=== PATIENT | male | born 1940 | race Caucasian/White ===

== ENCOUNTER 2022-01-06 14:08 | Inpatient (IN) | payer MEDICARE ==
[~2022-01-06] VITALS: Ht 175.3 cm; Wt 72.6 kg
[2022-01-06] MEDS ORDERED: ONDANSETRON HCL INJ 2MG/ML 2ML 2 MG/ML VIAL IV STA (14:37)
[2022-01-06] MEDS ORDERED: Morphine 2mg Syringe 2 MG/ML SYR IV ONE (14:45)
[2022-01-06] MEDS ORDERED: SODIUM CHLORIDE 0.9% 1000ML 1,000 ML IV SCH ×2 (14:45→16:00)
[2022-01-06] MEDS ORDERED: Morphine 4mg INJECTION 4 MG/ML INJ ONE (14:51)
[2022-01-06] MEDS ORDERED: SODIUM CHLORIDE 0.9% 1000ML 1,000 ML ONE (15:09)
[2022-01-06] MEDS ORDERED: ONDANSETRON HCL INJ 2MG/ML 2ML 2 MG/ML VIAL ONE (15:09)
[2022-01-06 17:55] VITALS: BP 164/81
[2022-01-06 18:11] VITALS: BP 165/82
[2022-01-06] MEDS: DEXTROSE 5%/0.9% SOD CHL 1,000 ML IV SCH (19:20)
[2022-01-06] MEDS: Morphine 2mg Syringe 2 MG/ML SYR IV PRN (19:23)
[2022-01-06] MEDS: MAALOX/LIDOCAINE/BENADRYL/NYST 30 ML BTL PO PRN (19:23)
[2022-01-06] MEDS ORDERED: HEPARIN 500 UNITS/5ML MDV INJ ONE (19:30)
[2022-01-06 20:00] VITALS: BP 158/74
[2022-01-06] MEDS ORDERED: POTASSIUM CHLORIDE 20 MEQ TAB CR PO PRN (22:45)
[2022-01-06] MEDS ORDERED: ALBUTEROL/IPRATROPIUM 3 ML NEB NEB PRN (22:45)
[2022-01-06] MEDS ORDERED: CHLORASEPTIC SPRAY 177 ML BTL MM PRN (22:45)
[2022-01-06] MEDS ORDERED: LIDOCAINE 4% PATCH TP PRN (22:45)
[2022-01-06] MEDS ORDERED: SIMETHICONE 80 MG CHEW PO PRN (22:45)
[2022-01-06] MEDS ORDERED: DOCUSATE SODIUM 100 MG CAP PO PRN (22:45)
[2022-01-06] MEDS ORDERED: HYDROCODONE/APAP 5MG-325MG TAB PO PRN (22:45)
[2022-01-06] MEDS ORDERED: ACETAMINOPHEN 325 MG TAB PO PRN (22:45)
[2022-01-06] MEDS ORDERED: MELATONIN 5 MG TABLET PO PRN (22:45)
[2022-01-06] MEDS ORDERED: BENZONATATE 100 MG CAP PO PRN (22:45)
[2022-01-06] MEDS ORDERED: DEXTROSE 50% SYRINGE 50 ML IV PRN (22:45)
[2022-01-06] MEDS ORDERED: HYDRALAZINE HCL 20 MG/ML VIAL IV PRN (22:45)
[2022-01-07] VITALS (8 sets, daily range): BP systolic 121–166; BP diastolic 77–87
[2022-01-07] MEDS: Morphine 2mg Syringe 2 MG/ML SYR IV PRN (00:31)
[2022-01-07] MEDS: DEXTROSE 5%/0.9% SOD CHL 1,000 ML IV SCH ×2 (05:14→16:02)
[2022-01-07 05:18] LABS: MAGNESIUM 2.2 MG/DL (1.3-2.1); PHOSPHORUS 3.2 MG/DL (2.3-4.7)
[2022-01-07 06:54] LABS: BASOPHILS % 0.2 % (0.0-1.0); EOSINOPHILS % 0.2 % (0.0-6.0); HEMATOCRIT 43.1 % (38.2-49.6); HEMOGLOBIN 13.8 g/dL (14.0-18.0); LYMPHOCYTES # (AUTO) 0.6 (1.0-3.2); LYMPHOCYTES % 9.3 % (18.0-39.1); MEAN CORPUSCULAR HEMOGLOBIN 32.8 pg (28-32); MEAN CORPUSCULAR VOLUME 102.4 fL (81-99); MONOCYTES % 0.6 % (4.4-11.3); NEUTROPHILS # (AUTO) 5.9 (2.1-6.9); NEUTROPHILS % 88.9 % (38.7-80.0); PLATELET COUNT 132 x10e3/uL (140-360); RED BLOOD COUNT 4.21 x10e6/uL (4.3-5.7); RED CELL DISTRIBUTION WIDTH 14.5 % (11.7-14.4)
[2022-01-07 07:21] LABS: ANION GAP 13.6 mmol/L (8-16); CALCIUM 8.8 mg/dL (8.4-10.2); CREATININE, SERUM 0.77 mg/dL (0.72-1.25); POTASSIUM 3.6 mmol/L (3.5-5.1)
[2022-01-07] MEDS: PANTOPRAZOLE SOD 40 MG TABEC PO SCH (08:09)
[2022-01-07] MEDS: SUCRALFATE 1 GM/10 ML SUSP PO SCH ×4 (08:09→19:50)
[2022-01-07] MEDS: MAALOX/LIDOCAINE/BENADRYL/NYST 30 ML BTL PO PRN (09:00)
[2022-01-07] MEDS ORDERED: FLUCONAZOLE 100 MG TAB PO SCH (11:00)
[2022-01-07] MEDS ORDERED: HYDROCODON-ACE1 EA12 PO (11:44)
[2022-01-07] MEDS ORDERED: SERTRALINE HCL100 MG PO (11:45)
[2022-01-07] MEDS ORDERED: MS CONTIN15 MG PO (11:45)
[2022-01-07] MEDS: HYDROCODONE BIT/ACETAMINOPHEN 2.5 MG/108MG PER 5 ML SOLUTION PO PRN (11:52)
[2022-01-07] MEDS: Morphine 4mg INJECTION 4 MG/ML INJ IV PRN ×2 (16:15→20:44)
[2022-01-07] MEDS: ENOXAPARIN SOD INJ 40 MG/0.4 ML SYR SC SCH (17:04)
[2022-01-08] VITALS (7 sets, daily range): BP systolic 121–169; BP diastolic 73–98
[2022-01-08] MEDS: DEXTROSE 5%/0.9% SOD CHL 1,000 ML IV SCH ×3 (01:30→21:30)
[2022-01-08] MEDS: SUCRALFATE 1 GM/10 ML SUSP PO SCH ×5 (05:22→21:00)
[2022-01-08] MEDS: PANTOPRAZOLE SOD 40 MG TABEC PO SCH (07:30)
[2022-01-08] MEDS: Morphine 4mg INJECTION 4 MG/ML INJ IV PRN ×4 (08:22→22:30)
[2022-01-08] MEDS: FLUCONAZOLE 100 MG TAB PEG SCH (09:00)
[2022-01-08] MEDS ORDERED: IOPAMIDOL 370 MG/ML 100 ML INFUS..BTL INJ ONE (12:05)
[2022-01-08] MEDS ORDERED: LIDOCAINE HCL 2% LOCAL INJ 5 ML SDV VIAL INJ ONE (13:24)
[2022-01-08] MEDS ORDERED: PROPOFOL IV EMULSION 10 MG/ML 20 ML VIAL ONE (13:24)
[2022-01-08] MEDS ORDERED: MIDAZOLAM HCL 2 MG/2 ML VIAL ONE (13:44)
[2022-01-08] MEDS: ENOXAPARIN SOD INJ 40 MG/0.4 ML SYR SC SCH (17:00)
[2022-01-08] MEDS: MAALOX/LIDOCAINE/BENADRYL/NYST 30 ML BTL PO PRN (21:40)
[2022-01-09] VITALS (7 sets, daily range): BP systolic 116–172; BP diastolic 58–94
[2022-01-09 04:57] LABS: BASOPHILS % 0.3 % (0.0-1.0); EOSINOPHILS % 0.2 % (0.0-6.0); HEMATOCRIT 44.8 % (38.2-49.6); HEMOGLOBIN 13.6 g/dL (14.0-18.0); LYMPHOCYTES # (AUTO) 0.5 (1.0-3.2); LYMPHOCYTES % 8.1 % (18.0-39.1); MEAN CORPUSCULAR HEMOGLOBIN 32.8 pg (28-32); MEAN CORPUSCULAR HGB CONC 30.4 g/dL (31-35); MONOCYTES # (AUTO) 0.1 (0.2-0.8); MONOCYTES % 0.8 % (4.4-11.3); NEUTROPHILS # (AUTO) 5.7 (2.1-6.9); NEUTROPHILS % 89.3 % (38.7-80.0); PLATELET COUNT 75 x10e3/uL (140-360); RED BLOOD COUNT 4.15 x10e6/uL (4.3-5.7); RED CELL DISTRIBUTION WIDTH 14.3 % (11.7-14.4)
[2022-01-09 06:19] LABS: LYMPHOCYTES % (MANUAL) 6 % (19-48); NEUTROPHILS % (MANUAL) 94 % (40-74); PLATELET ESTIMATE MODERATELY DECREASED; PLATELET MORPHOLOGY COMMENT NORMAL; RBC MORPHOLOGY COMMENT NORMAL
[2022-01-09] MEDS: DEXTROSE 5%/0.9% SOD CHL 1,000 ML IV SCH (06:20)
[2022-01-09 07:49] LABS: ANION GAP 13.3 mmol/L (8-16); CALCIUM 8.4 mg/dL (8.4-10.2); CREATININE, SERUM 0.73 mg/dL (0.72-1.25); POTASSIUM 3.3 mmol/L (3.5-5.1)
[2022-01-09] MEDS: SUCRALFATE 1 GM/10 ML SUSP PO SCH ×4 (08:20→21:32)
[2022-01-09] MEDS: PANTOPRAZOLE SOD 40 MG TABEC PO SCH (08:20)
[2022-01-09] MEDS: FLUCONAZOLE 100 MG TAB PEG SCH (09:00)
[2022-01-09] MEDS: Morphine 4mg INJECTION 4 MG/ML INJ IV PRN ×2 (09:17→14:40)
[2022-01-09] MEDS: ONDANSETRON HCL INJ 2MG/ML 2ML 2 MG/ML VIAL IV PRN ×2 (09:17→14:40)
[2022-01-09] MEDS ORDERED: ACYCLOVIR 200 MG CAP PO SCH (14:00)
[2022-01-09] MEDS ORDERED: POTASSIUM CHLORIDE 20MEQ/100ML 200 ML IV ONE (14:15)
[2022-01-09] MEDS ORDERED: POTASSIUM CHLORIDE 20MEQ/15ML UDC NG ONE (14:45)
[2022-01-09] MEDS ORDERED: KCL 20 MEQ PACKET/ ORAL SOLN NG ONE (15:30)
[2022-01-09] MEDS: ENOXAPARIN SOD INJ 40 MG/0.4 ML SYR SC SCH (16:39)
[2022-01-09] MEDS: DEXTROSE 5% 1,000 ML IV SCH (16:39)
[2022-01-09] MEDS: ACYCLOVIR SODIUM 800 MG in SODIUM CHLORIDE 0.9% 250ML 250 ML IV SCH ×2 (16:39→21:33)
[2022-01-09] MEDS: METOCLOPRAMIDE HCL 10 MG/2ML VIAL IV SCH ×2 (16:44→23:56)
[2022-01-09] MEDS: DIPHENHYDRAMINE HCL 25 MG CAP PO PRN (23:56)
[2022-01-09] MEDS: HYDROCODONE BIT/ACETAMINOPHEN 2.5 MG/108MG PER 5 ML SOLUTION PO PRN (23:56)
[2022-01-10] VITALS (8 sets, daily range): BP systolic 152–168; BP diastolic 71–91
[2022-01-10] MEDS: DEXTROSE 5% 1,000 ML IV SCH ×3 (00:56→20:22)
[2022-01-10] MEDS: ACYCLOVIR SODIUM 800 MG in SODIUM CHLORIDE 0.9% 250ML 250 ML IV SCH ×3 (05:59→21:55)
[2022-01-10] MEDS: METOCLOPRAMIDE HCL 10 MG/2ML VIAL IV SCH ×4 (05:59→23:39)
[2022-01-10 06:50] LABS: BASOPHILS % 0.2 % (0.0-1.0); EOSINOPHILS # (AUTO) 0.1 (0.0-0.4); HEMATOCRIT 40.9 % (38.2-49.6); HEMOGLOBIN 13.4 g/dL (14.0-18.0); LYMPHOCYTES # (AUTO) 0.7 (1.0-3.2); LYMPHOCYTES % 14.9 % (18.0-39.1); MEAN CORPUSCULAR HEMOGLOBIN 32.4 pg (28-32); MEAN CORPUSCULAR HGB CONC 32.8 g/dL (31-35); MONOCYTES % 0.9 % (4.4-11.3); NEUTROPHILS # (AUTO) 3.6 (2.1-6.9); NEUTROPHILS % 81.3 % (38.7-80.0); PLATELET COUNT 70 x10e3/uL (140-360); RED BLOOD COUNT 4.13 x10e6/uL (4.3-5.7); RED CELL DISTRIBUTION WIDTH 14.1 % (11.7-14.4)
[2022-01-10 07:22] LABS: CALCIUM 8.2 mg/dL (8.4-10.2); CREATININE, SERUM 0.78 mg/dL (0.72-1.25)
[2022-01-10] MEDS: PANTOPRAZOLE SOD 40 MG TABEC PO SCH (07:30)
[2022-01-10] MEDS: FLUCONAZOLE 100 MG TAB PEG SCH (09:25)
[2022-01-10] MEDS: SUCRALFATE 1 GM/10 ML SUSP PO SCH ×4 (09:25→21:55)
[2022-01-10] MEDS: ONDANSETRON HCL INJ 2MG/ML 2ML 2 MG/ML VIAL IV PRN ×3 (09:45→20:22)
[2022-01-10] MEDS: Morphine 4mg INJECTION 4 MG/ML INJ IV PRN ×3 (09:45→20:22)
[2022-01-10] MEDS: HYDROCODONE BIT/ACETAMINOPHEN 2.5 MG/108MG PER 5 ML SOLUTION PO PRN (12:44)
[2022-01-10] MEDS ORDERED: SCOPOLAMINE 1 MG PATCH TOP SCH (15:45)
[2022-01-10] MEDS ORDERED: BALSAM PERU/CASTOR OIL 60 GM OINT...G. TP PRN ×2 (15:45→16:00)
[2022-01-10] MEDS ORDERED: HYDROCODONE BIT/ACETAMINOPHEN 2.5 MG/108MG PER 5 ML SOLUTION PEG PRN ×2 (16:45→17:00)
[2022-01-10] MEDS ORDERED: FENTANYL 12MCG/HR PATCH TD SCH (16:45)
[2022-01-10] MEDS: ENOXAPARIN SOD INJ 40 MG/0.4 ML SYR SC SCH (17:15)
[2022-01-10] MEDS: DIPHENHYDRAMINE HCL 25 MG CAP PO PRN (21:58)
[2022-01-11] VITALS (7 sets, daily range): BP systolic 140–163; BP diastolic 79–96
[2022-01-11] MEDS: Morphine 4mg INJECTION 4 MG/ML INJ IV PRN (01:22)
[2022-01-11] MEDS: METOCLOPRAMIDE HCL 10 MG/2ML VIAL IV SCH ×3 (05:28→18:29)
[2022-01-11] MEDS: ACYCLOVIR SODIUM 800 MG in SODIUM CHLORIDE 0.9% 250ML 250 ML IV SCH ×3 (06:09→23:15)
[2022-01-11 07:10] LABS: BASOPHILS % 0.3 % (0.0-1.0); EOSINOPHILS # (AUTO) 0.1 (0.0-0.4); EOSINOPHILS % 3.3 % (0.0-6.0); HEMATOCRIT 41.8 % (38.2-49.6); HEMOGLOBIN 13.2 g/dL (14.0-18.0); LYMPHOCYTES # (AUTO) 0.7 (1.0-3.2); LYMPHOCYTES % 21.7 % (18.0-39.1); MEAN CORPUSCULAR HEMOGLOBIN 32.4 pg (28-32); MEAN CORPUSCULAR HGB CONC 31.6 g/dL (31-35); MEAN CORPUSCULAR VOLUME 102.7 fL (81-99); MONOCYTES # (AUTO) 0.1 (0.2-0.8); MONOCYTES % 2.3 % (4.4-11.3); NEUTROPHILS # (AUTO) 2.2 (2.1-6.9); NEUTROPHILS % 72.1 % (38.7-80.0); PLATELET COUNT 53 x10e3/uL (140-360); RED BLOOD COUNT 4.07 x10e6/uL (4.3-5.7); RED CELL DISTRIBUTION WIDTH 14.4 % (11.7-14.4)
[2022-01-11] MEDS: SUCRALFATE 1 GM/10 ML SUSP PO SCH ×4 (07:30→21:15)
[2022-01-11] MEDS: PANTOPRAZOLE SOD 40 MG TABEC PO SCH (07:30)
[2022-01-11] MEDS: FLUCONAZOLE 100 MG TAB PEG SCH (09:00)
[2022-01-11] MEDS ORDERED: NALOXONE HCL INJ 0.4 MG/ML AMP IV NR (10:30)
[2022-01-11 10:42] LABS: EOSINOPHILS % (MANUAL) 3 % (0-7); LYMPHOCYTES % (MANUAL) 20 % (19-48); MONOCYTES % (MANUAL) 3 % (3.4-9.0); NEUTROPHILS % (MANUAL) 74 % (40-74)
[2022-01-11 11:32] LABS: BASOPHILS % 0.4 % (0.0-1.0); EOSINOPHILS # (AUTO) 0.1 (0.0-0.4); EOSINOPHILS % 3.7 % (0.0-6.0); HEMATOCRIT 37.5 % (38.2-49.6); HEMOGLOBIN 12.2 g/dL (14.0-18.0); LYMPHOCYTES # (AUTO) 0.5 (1.0-3.2); MEAN CORPUSCULAR HEMOGLOBIN 32.6 pg (28-32); MEAN CORPUSCULAR HGB CONC 32.5 g/dL (31-35); MEAN CORPUSCULAR VOLUME 100.3 fL (81-99); MONOCYTES # (AUTO) 0.1 (0.2-0.8); MONOCYTES % 2.9 % (4.4-11.3); NEUTROPHILS # (AUTO) 1.8 (2.1-6.9); NEUTROPHILS % 72.6 % (38.7-80.0); RED BLOOD COUNT 3.74 x10e6/uL (4.3-5.7); RED CELL DISTRIBUTION WIDTH 14.1 % (11.7-14.4)
[2022-01-11 11:34] LABS: PLATELET COUNT 49 x10e3/uL (140-360)
[2022-01-11 11:40] LABS: INR 1.11; PARTIAL THROMBOPLASTIN TIME 29.2 seconds (23.8-35.5); PROTHROMBIN TIME 15.3 seconds (11.9-14.5)
[2022-01-11] MEDS ORDERED: METOPROLOL TARTRATE 25 MG TAB PEG ONE (13:15)
[2022-01-11] MEDS ORDERED: Morphine 2mg Syringe 2 MG/ML SYR IV NR (15:00)
[2022-01-11] MEDS: DEXTROSE 5% 1,000 ML IV SCH ×2 (15:00→18:28)
[2022-01-11] MEDS ORDERED: METOPROLOL TARTRATE 25 MG TAB PEG SCH (17:00)
[2022-01-11 17:45] LABS: ANION GAP 13.7 mmol/L (8-16); CALCIUM 8.1 mg/dL (8.4-10.2); CREATININE, SERUM 0.83 mg/dL (0.72-1.25); POTASSIUM 3.7 mmol/L (3.5-5.1)
[2022-01-11] MEDS: METOPROLOL TARTRATE 25 MG TAB PEG SCH (18:29)
[2022-01-11] MEDS ORDERED: Morphine 2mg Syringe 2 MG/ML SYR IV PRN (19:15)
[2022-01-11] MEDS: ONDANSETRON HCL INJ 2MG/ML 2ML 2 MG/ML VIAL IV PRN (21:10)
[2022-01-12] MEDS ORDERED: QUETIAPINE FUMARATE 25 MG TAB PEG ONE
[2022-01-12] MEDS: METOCLOPRAMIDE HCL 10 MG/2ML VIAL IV SCH ×2 (01:10→05:03)
[2022-01-12] MEDS: METOPROLOL TARTRATE 25 MG TAB PEG SCH ×2 (01:11→05:04)
[2022-01-12 01:13] VITALS: BP 160/78
[2022-01-12] MEDS: DEXTROSE 5% 1,000 ML IV SCH (04:29)
[2022-01-12] MEDS: ACYCLOVIR SODIUM 800 MG in SODIUM CHLORIDE 0.9% 250ML 250 ML IV SCH (05:03)
[2022-01-12 05:19] VITALS: BP 125/65
[2022-01-12 06:03] LABS: ANION GAP 9.1 mmol/L (8-16); CALCIUM 7.4 mg/dL (8.4-10.2); CREATININE, SERUM 0.72 mg/dL (0.72-1.25); POTASSIUM 3.1 mmol/L (3.5-5.1)
[2022-01-12 08:54] VITALS: BP 143/76
[2022-01-12] MEDS ORDERED: PREDNISONE 20 MG TAB PO SCH (09:00)
== END 2022-01-12 13:42 | disposition expired | DRG 374 ==
LOC: FSED 14:16 → ERHOLD 16:00 → MED/SURG 17:32 → OBSVTOIN 01-08 12:38 → MED/SURG2 01-08 23:31 → IMCU 01-12 11:37
PROVIDERS: ADMIT Internal Medicine; ATTEND Internal Medicine
PROC: 0DH63UZ Insertion of Feeding Device into Stomach, Percutaneous Approach (ICD-10-PCS; principal; 2022-01-08 14:48)
DX: C19 Malignant neoplasm of rectosigmoid junction (principal); E43 Unspecified severe protein-calorie malnutrition; G93.40 Encephalopathy, unspecified; K12.31 Oral mucositis (ulcerative) due to antineoplastic therapy; E86.0 Dehydration; I48.91 Unspecified atrial fibrillation; T45.1X5A Adverse effect of antineoplastic and immunosuppressive drugs, initial encounter; Z66 Do not resuscitate; I10 Essential (primary) hypertension; E78.5 Hyperlipidemia, unspecified; D64.9 Anemia, unspecified; Z96.653 Presence of artificial knee joint, bilateral; D69.59 Other secondary thrombocytopenia; R62.7 Adult failure to thrive; Z93.2 Ileostomy status; Z72.89 Other problems related to lifestyle; K29.70 Gastritis, unspecified, without bleeding; K20.90 Esophagitis, unspecified without bleeding; K44.9 Diaphragmatic hernia without obstruction or gangrene; Z20.822 Contact with and (suspected) exposure to COVID-19; Z68.23 Body mass index [BMI] 23.0-23.9, adult; E87.6 Hypokalemia; Z92.3 Personal history of irradiation; Z51.5 Encounter for palliative care; Z79.899 Other long term (current) drug therapy
CPT/HCPCS: 36415; 43246; 74018; 80048; 80053; 81003; 82948; 83735; 84100; 85025; 85379; 85384; 85610; 85730; 86022; 87086; 93005; 96361; 96374; 97139; 99251; 99284; G0378; J0360; J1650; J2001; J2250; J2270; J2310; J2405; J2543; J2765; J7030; J7042; J7050; J7070; Q9967